=== PATIENT | female | born 1960 | race Caucasian/White ===

== ENCOUNTER 2017-07-06 10:10 | Inpatient (IN) ==
[2017-07-06] MEDS ORDERED: Ketorolac 30 MG/ML VIAL IVP ONE (10:54)
[2017-07-06] MEDS ORDERED: 0.9 % Sodium Chloride 1,000 ML IVC ONE (10:54)
[2017-07-06] MEDS ORDERED: Metoclopramide 10 MG/2 ML VIAL IVP ONE (10:54)
--- NOTE | 2017-07-06 11:05 | Emergency Department Note ---
START Narrative - START START: Nursing notes have been reviewed. Vital signs have been reviewed. Patient presents from home with her for evaluation of a headache. It is occipital and posterior cervical in location. It is constant, throbbing, dull. It began gradually on Sunday while she was a patient in the hospital at [facility]. She had been admitted on Sunday for influenza, dehydration and hypoxia. She was treated for the headache with Imitrex, however she states that this did not help. The headache has persisted so she came in for further evaluation. She denies fever, chills, nausea or vomiting. She also denies dyspnea, chest pain, dizziness, vertigo, syncope, vision changes, unilateral weakness, speech problems, confusion or ataxia. Negative been ordered. Case will be discussed with the oncoming provider who will take over care of the patient.
[2017-07-06] MEDS ORDERED: Albuterol 2.5 MG/3 ML NEBULIZER IH ONE (11:28)
[2017-07-06] MEDS ORDERED: Ipratropium/Albuterol Neb 3 ML IH ONE (11:28)
[2017-07-06] MEDS ORDERED: methylPREDNISolone 125 MG/2 ML VIAL IVP ONE (11:28)
--- NOTE | 2017-07-06 11:37 | Emergency Department Note ---
Disposition Clinical Impression: Headache Qualifiers: Headache type: unspecified Headache chronicity pattern: acute headache Intractability: intractable Qualified Code(s): R51 - Headache Disposition: Admitted As Inpatient Condition: Good Time of Disposition: 11:27 General Adult HPI - General Chief complaint: ED Headache Stated complaint: Head/Neck pain Time Seen by Provider: 07/06/17 10:41 Source: patient Limitations: no limitations Nursing Notes Reviewed: Yes Vital Signs Reviewed: Yes - History of Present Illness HPI Narrative: 6-year-old female presents emergency Department with concerns of persistent headache and neck pain. Patient states her headache has been present for the past 4 days, she was diagnosed with influenza at [facility]. She is admitted to the hospital for further care and evaluation of flu and hypoxia and was just discharged yesterday. Patient presents today with O2 saturations of 86% on room air. Patient does have a history of COPD and takes 20 mg steroids daily however she is unsure of her baseline O2 saturation. Patient does report one episode of vomiting last night when her headache was severe. The emesis was described as nonbilious, nonbloody. Patient denies recent trauma , fever, cough with sputum production, chest pain, palpitations, abdominal pain. Pain Scale: 10 - Related Data Home Medications Medication Instructions Recorded Confirmed Acyclovir [Zovirax] 400 mg PO BID 07/06/17 07/06/17 Atorvastatin Calcium [Lipitor] 20 mg PO HS 07/06/17 07/06/17 Fluticasone/Vilanterol [Breo 1 each IH AD 07/06/17 07/06/17 Ellipta 100-25 Mcg INH] Levothyroxine Sodium [Levoxyl] 50 mcg PO DAILY 07/06/17 07/06/17 Montelukast [Singulair] 10 mg PO DAILY 07/06/17 07/06/17 Multivit-Min/FA/Lycopen/Lutein 1 tab PO DAILY 07/06/17 07/06/17 [Centrum Silver Tablet] Omeprazole [PriLOSEC] 40 mg PO DAILY 07/06/17 07/06/17 Oseltamivir [Tamiflu] 75 mg PO DAILY 07/06/17 07/06/17 Ranitidine HCl [Acid [place]] 150 mg PO BID 07/06/17 07/06/17 Umeclidinium [place] [Incruse 62.5 mcg IH DAILY 07/06/17 07/06/17 Ellipta] predniSONE [PredniSONE] 10 mg PO AD 07/06/17 07/06/17 Allergies Allergy/AdvReac Type Severity Reaction Status Date / Time Penicillins Allergy Anaphylaxis Verified 07/06/17 12:51 sulfamethoxazole Allergy Hives Verified 07/06/17 12:51 [From Bactrim] trimethoprim [From Bactrim] Allergy Hives Verified 07/06/17 12:51 All systems ED: reviewed and negative except as stated. Review of Systems: As Per HPI Past Medical History - Past Medical History Attestation: Yes The following information was validated with the patient. Source: patient Medical history: Reports: no medical history Psychiatric history: Reports: no psych history - Social History Smoking Status: Never smoker Physical Exam General: Alert and in no acute distress Skin: Warm, dry, intact Head: Normocephalic and atraumatic Neck: Supple, trachea midline and no tenderness Cardiovascular: RRR, no murmur, normal perfusion Respiratory: Decreased air movement bilaterally otherwise clear to auscultation Musculoskeletal: Normal strength, no tenderness, swelling or deformity GI: Soft, nontender, nondistended. Bowel sounds present Neuro: A&O to person, place, time and situation. No focal deficits noted on exam Psychiatric: cooperative and appropriate mood and affect. - General Limitations: no limitations General appearance: alert, in no apparent distress Course Vital Signs Temperature 98.4 F 07/06/17 10:21 Pulse Rate 97 07/06/17 10:21 Respiratory Rate 18 07/06/17 10:21 Blood Pressure 141/86 07/06/17 10:21 O2 Sat by Pulse Oximetry 85 07/06/17 10:21 Temperature 98.4 F 07/06/17 10:21 Pulse Rate 88 07/06/17 15:48 Respiratory Rate 16 07/06/17 16:21 Blood Pressure 129/81 07/06/17 16:21 O2 Sat by Pulse Oximetry 95 07/06/17 15:48 Oxygen Delivery Oxygen Delivery Nasal Cannula Medical Decision Making - [facility] Narrative Medical decision making narrative: Patient states her headache has been present over the past 4 days, it improved slightly during evaluation was at [facility] however never fully resolved. Patient states her headache worsened upon discharge from the hospital yesterday. She denies recent imaging of her head. She has a history of breast cancer. CTA of the chest did not show acute PE. It did however show bibasally or atelectasis versus mild infiltrate. Patient is afebrile and this is unlikely pneumonia. Patient's symptoms likely secondary to COPD exacerbation with her acute onset of influenza. - Medical Records Medical records reviewed: Yes I reviewed the patient's medical records. - Lab Data Lab results reviewed: Yes I reviewed the patient's lab results. Result diagrams: 07/06/17 11:40 07/06/17 11:40 Lab Results 07/06/17 07/06/17 07/06/17 Range/Units 11:40 11:40 11:40 WBC 12.1 H (4.3-11.1) K/mcL RBC 4.25 (3.82-4.97) M/mcL Hgb 12.5 (11.5-15.4) g/dL Hct 39.0 (35.3-44.9) % MCV 91.8 (83.0-100.0) fL MCH 29.4 (28.0-33.3) pg MCHC 32.1 (31.6-35.5) g/dL RDW 13.3 (11.5-14.5) % Plt Count 236 (140-400) K/mcL MPV 8.6 L (9.4-12.4) fL Immature Gran % 0.3 (0-4) % Seg Neutrophils % 82.5 % Lymphocytes % 11.2 % Monocytes % 5.9 % Eosinophils % 0.0 % Basophils % 0.1 % Neutrophils # 10.0 H (1.6-8.9) K/mcL Lymphocytes # 1.4 (0.6-4.6) K/mcL Monocytes # 0.7 (0.0-1.3) K/mcL Eosinophils # 0.0 (0.0-0.6) K/mcL Basophils # 0.0 (0.0-0.2) K/mcL D-Dimer 661 H (0-500) ng/mLFEU Sodium 139 (136-145) mEq/L Potassium 3.4 L (3.5-5.1) mEq/L Chloride 101 (98-107) mEq/L Carbon Dioxide 33 H (23-29) mEq/L BUN 22 H (6-20) mg/dL Creatinine 0.66 (0.60-1.20) mg/dL Est GFR ( Amer) > 60 (> 60) Est GFR (Non-Af Amer) > 60 (> 60) BUN/Creatinine Ratio 33 H (6-26) Glucose 96 (70-105) mg/dL Calculated Osmolality 291 (280-300) Lactic Acid (0.5-2.2) mmol/L Calcium 8.5 L (8.6-10.3) mg/dL Troponin I (< 0.04) ng/mL 07/06/17 07/06/17 Range/Units 11:40 11:40 WBC (4.3-11.1) K/mcL RBC (3.82-4.97) M/mcL Hgb (11.5-15.4) g/dL Hct (35.3-44.9) % MCV (83.0-100.0) fL MCH (28.0-33.3) pg MCHC (31.6-35.5) g/dL RDW (11.5-14.5) % Plt Count (140-400) K/mcL MPV (9.4-12.4) fL Immature Gran % (0-4) % Seg Neutrophils % % Lymphocytes % % Monocytes % % Eosinophils % % Basophils % % Neutrophils # (1.6-8.9) K/mcL Lymphocytes # (0.6-4.6) K/mcL Monocytes # (0.0-1.3) K/mcL Eosinophils # (0.0-0.6) K/mcL Basophils # (0.0-0.2) K/mcL D-Dimer (0-500) ng/mLFEU Sodium (136-145) mEq/L Potassium (3.5-5.1) mEq/L Chloride (98-107) mEq/L Carbon Dioxide (23-29) mEq/L BUN (6-20) mg/dL Creatinine (0.60-1.20) mg/dL Est GFR ( Amer) (> 60) Est GFR (Non-Af Amer) (> 60) BUN/Creatinine Ratio (6-26) Glucose (70-105) mg/dL Calculated Osmolality (280-300) Lactic Acid 0.6 (0.5-2.2) mmol/L Calcium (8.6-10.3) mg/dL Troponin I < 0.03 (< 0.04) ng/mL - Radiology Data Radiology results reviewed: Yes I reviewed the patient's radiology results. - EKG Data EKG #1 EKG attestation: Yes I reviewed and interpreted this EKG. EKG results narrative: ECG - interpreted by ED physician. Rate 87, normal sinus rhythm, no STEMI, GA, QT intervals, and QRS within normal limits
[2017-07-06 11:52] LABS: Basophils % 0.1 %; Hemoglobin 12.5 g/dL (11.5-15.4); Immature Granulocytes % 0.3 % (0-4); Lymphocytes # 1.4 K/mcL (0.6-4.6); Lymphocytes % 11.2 %; Mean Corpuscular HGB Conc 32.1 g/dL (31.6-35.5); Mean Corpuscular Hemoglobin 29.4 pg (28.0-33.3); Mean Corpuscular Volume 91.8 fL (83.0-100.0); Mean Platelet Volume 8.6 fL (9.4-12.4); Monocytes # 0.7 K/mcL (0.0-1.3); Monocytes % 5.9 %; Platelet Count 236 K/mcL (140-400); Red Blood Count 4.25 M/mcL (3.82-4.97); Red Cell Distribution Width 13.3 % (11.5-14.5); Segmented Neutrophils % 82.5 %
[2017-07-06 12:06] LABS: BUN/Creatinine Ratio 33 (6-26); Blood Urea Nitrogen 22 mg/dL (6-20); Calcium 8.5 mg/dL (8.6-10.3); Carbon Dioxide 33 mEq/L (23-29); Chloride 101 mEq/L (98-107); Glucose 96 mg/dL (70-105); Osmolality,Calculated 291 (280-300); Potassium 3.4 mEq/L (3.5-5.1); Sodium 139 mEq/L (136-145); eGFR For African Americans > 60 (> 60); eGFR For Non-African Americans > 60 (> 60)
[2017-07-06] MEDS ORDERED: *HR* Promethazine 25 MG/ML VIAL IVP PRN (17:18)
[2017-07-06] MEDS ORDERED: Naloxone 0.4 MG/ML INJ IVP PRN (17:18)
--- NOTE | 2017-07-06 17:47 | Internal Med History&Physical ---
Date of Encounter: 07/06/17 Time of Encounter: 16:30 Assessment and Plan (1) Pneumonia Current visit: Yes Status: Acute Acute HCAP r/t recent hospitalization in [facility] complicated by influenza dx. 2-View CXR today shows left basilar atelectasis compatible with pneumonia. Blood cultures 2 ordered. Sputum culture. Legionella and strep pneumoniae antigens ordered. IVP may Levaquin 750 daily and aztreonam 1,000 mg every 8 for infection coverage. Will adjust ABX coverage based on culture results. Supplemental O2 with titration and SPO2 monitoring. DuoNebs every 6 scheduled. Continuous telemetry d/t tachycardia. WBC 12.1 on admission. Pt. does not currently meet sepsis criteria but will be monitored closely along w/f/ u labs. Pt. discussed w/Dr. Lane who is in agreement w/plan of care. Pt. is high risk for further morbidity d/t pneumonia, influenza, SOB, dyspnea, N/V. Inpatient. Qualifiers: Pneumonia type: due to unspecified organism Laterality: left Lung location: lower lobe of lung Qualified Code(s): J18.1 - Lobar pneumonia, unspecified organism (2) Influenza Current visit: Yes Status: Acute Acute influenza dx. Pt. states she was diagnosed in [facility] on Sunday with positive flu. Placed on Tamiflu for 2 days but patient states she was unable to take at home due to nausea vomiting. Tamiflu 75 mg twice a day 5 days. Supportive care. (3) Elevated d-dimer Current visit: Yes Status: Acute Acutely elevated D-dimer of 661 on admission. Concern was for possible PE. CTA today is no convincing evidence of pulmonary embolus within the limits of the study. No evidence for right heart strain. Bilateral venous Dopplers of LEs to r/o DVTs. Lovenox 40 mg 0600 daily for DVT prophylaxis. (4) Hypokalemia Current visit: Yes Status: Acute Acute hypokalemia w/potassium of 3.4 on admission. 40 mEq PO potassium ordered. Monitor f/u labs. Continuous cardiac telemetry. (5) Hypocalcemia Current visit: Yes Status: Acute Acute hypocalcemia w/calcium level of 8.5 on admission. 1,000 mg calcium carbonate PO TID. Monitor f/u labs. (6) Headache Current visit: Yes Status: Acute Acute headache associated w/flu dx. Stair-step pain medications for pain mgmt. Qualifiers: Headache type: unspecified Headache chronicity pattern: acute headache Intractability: intractable Qualified Code(s): R51 - Headache (7) Herpes Current visit: Yes Status: Acute Acute Herpes Simplex 1 & 2. Pt. states she was recently diagnosed w/both strains and started on medication on 06/28/17. Continue pts. Acyclovir. (8) GERD (gastroesophageal reflux disease) Current visit: Yes Status: Chronic Hx of chronic GERD. IVP phenergan 12.5 mg Q6 for N/V. Continue pts. Prilosec. Qualifiers: Esophagitis presence: esophagitis presence not specified Qualified Code(s) : K21.9 - Gastro-esophageal reflux disease without esophagitis (9) HLD (hyperlipidemia) Current visit: Yes Status: Chronic Hx of chronic HLD. Lipid panel in a.m. labs. Continue pts. Lipitor. Qualifiers: Hyperlipidemia type: pure hypercholesterolemia Qualified Code(s): E78.00 - Pure hypercholesterolemia, unspecified; E78.0 - Pure hypercholesterolemia (10) Thyroid disease Current visit: Yes Status: Chronic Hx of chronic thyroid disease. Continue pts. Levoxyl (11) DVT prophylaxis Current visit: Yes Status: Acute Lovenox 40 mg 0600 for DVT prophylaxis. Monitor pt. for signs of bleeding. Internal Medicine - H&P: HPI Chief complaint: Headache/SOB/Dyspnea Admitted From: Emergency Dept Plans for Post Hospital Care: Home History of present illness: Ms. Ponce is a 56 year old female with medical hx of HLD, thyroid disease, sleep apnea, GERD, and migraines presents from the ED with chief complaint of headache, shortness of breath, dyspnea for the past 2 days. Patient states she was admitted to [facility] on Sunday and diagnosed with positive flu and discharged yesterday. Patient states she was given 2 days of Tamiflu [facility] but did not continue at home d/t N/V. Patient states symptoms became worse and were accompanied by headache. She reports shortness of breath, cough, dyspnea, headache, nausea, vomiting but denies fever , chills, chest pain, weakness, fatigue, dizziness, lightheadedness, abdominal pain, diarrhea, constipation, pre-syncope, or syncope. Past Med Surg Social Fam HX - Past Medical History Source: patient, old records reviewed Medical history: GERD, hyperlipidemia, migraine, thyroid disease, other (Sleep apnea) Psychiatric history: no psych history - Social History Smoking Status: Former smoker Packs per day: 3 PPD - Reports quitting in 2011 Alcohol use: occasionally Drug use: none Current living situation: Home Activity Level: Independent ambulation Recent Out of Country Travel Within the Last 8 Weeks: No Exposure or Possible Exposure to Illness During Travel: No - Family History Father Race: Family Member Ethnicity: Non- Living Status: Still Living Hx Family Cardiac Disorders: Yes (HTN, Pacemaker) Hx Family Cancer: Yes (Throat) Hx Family Musculoskeletal Disorders: Yes (Back surgery) Mother Race: Family Member Ethnicity: Non- Living Status: Still Living Hx Family Cardiac Disorders: Yes (HTN) Hx Family Respiratory Disorders: Yes (Asthma) Brother Race: Family Member Ethnicity: Non- Living Status: Still Living Hx Family Cardiac Disorders: Yes (DVTs) Hx Family Psychosocial Disorders: Yes (EtOH abuse) Sister Race: Family Member Ethnicity: Non- Living Status: Still Living Hx Family Cardiac Disorders: Yes (HLD, HTN, TIAs) Internal Medicine - H&P: Meds Acyclovir [Zovirax] 400 mg PO BID 07/06/17 [History] Atorvastatin Calcium [Lipitor] 20 mg PO HS 07/06/17 [History] Fluticasone/Vilanterol [Breo Ellipta 100-25 Mcg INH] 1 each IH AD 07/06/17 [ History] Levothyroxine Sodium [Levoxyl] 50 mcg PO DAILY 07/06/17 [History] Montelukast [Singulair] 10 mg PO DAILY 07/06/17 [History] Multivit-Min/FA/Lycopen/Lutein [Centrum Silver Tablet] 1 tab PO DAILY 07/06/17 [ History] Omeprazole [PriLOSEC] 40 mg PO DAILY 07/06/17 [History] Oseltamivir [Tamiflu] 75 mg PO DAILY 07/06/17 [History] Ranitidine HCl [Acid Belly Dancer] 150 mg PO BID 07/06/17 [History] Umeclidinium [place] [Incruse Ellipta] 62.5 mcg IH DAILY 07/06/17 [History] predniSONE [PredniSONE] 10 mg PO AD 07/06/17 [History] 3 Allergy/AdvReac Type Severity Reaction Status Date / Time Penicillins Allergy Anaphylaxis Verified 07/06/17 12:51 sulfamethoxazole Allergy Hives Verified 07/06/17 12:51 [From Bactrim] trimethoprim [From Bactrim] Allergy Hives Verified 07/06/17 12:51 All Systems PM: A 10-system review of systems was performed and is negative for pertinent findings except as documented above in the HPI. - Constitutional Constitutional: as per HPI, no chills, no fever(s), no night sweats - EENT Eyes: no change in vision, no discharge, no pain, no photophobia Ears: no ear discharge, no ear pain, no tinnitus Nose, mouth and throat: no dysphagia, no nasal discharge, no neck pain, no sore throat - Breasts Breasts: as per HPI - Cardiovascular Cardiovascular ROS IM: as per HPI, dyspnea, dyspnea on exertion, no chest pain, no diaphoresis, no lightheadedness, no palpitations, no syncope - Respiratory Respiratory: as per HPI, cough, dyspnea, dyspnea on exertion, no wheezing, no excessive phlegm production - Gastrointestinal Gastrointestinal: as per HPI, nausea, vomiting, no abdominal pain, no diarrhea, no hematemesis, no hematochezia, no melena - Genitourinary Genitourinary: no change in urinary stream, no dysuria, no flank pain, no hematuria Menstruation: as per HPI - Musculoskeletal Musculoskeletal ROS IM: no numbness, no tingling - Integumentary Integumentary IM: no rash, no unusual bruising - Neurological Neurological ROS: no confusion, no convulsions, no focal weakness, no numbness, no tingling, no tremor(s) - Psychiatric Psychiatric: as per HPI - Endocrine Endocrine IM: as per HPI - Hematologic/Lymphatic Hematologic/Lymphatic: no easy bruising - Allergic/Immunologic Allergic/Immunologic: as per HPI - Constitutional Vitals: Temp Pulse Resp BP Pulse Ox 98.2 F 76 16 135/69 93 07/06/17 17:28 07/06/17 17:28 07/06/17 17:28 07/06/17 17:28 07/06/17 17:28 General appearance: Present: cooperative, A&O X 3, morbidly obese, pleasant, no acute distress, answers questions appropriately - Head Head exam: Present: atraumatic, normocephalic - Eye Eye exam: Present: PERRL, conjuntiva pink, sclera anicteric Pupils: Present: PERRL - ENT ENT exam: Present: normal exam - Neck Neck exam general surgery: Present: normal inspection, supple, trachea midline. Absent: lymphadenopathy - Respiratory Respiratory exam: Present: decreased breath sounds - Cardiovascular Cardiovascular exam: Present: RRR, +S1, +S2. Absent: diastolic murmur, gallop, rubs, systolic murmur - GI/Abdominal GI/Abdominal exam: Present: normal bowel sounds, soft, no peritoneal signs. Absent: distended, tenderness - Rectal Rectal exam: Present: deferred - Additional comments: exam deferred. - Extremities Exam Extremities exam: Present: warm, radial pulses palpable and symmetrical. Absent : calf tenderness, cyanotic, pedal edema - Back Exam Back exam: Present: normal inspection - Neurological Exam Neurological exam: Present: CN II-XII intact, oriented X3, no focal deficits. Absent: pronater drift, facial droop, speech deficit - Psychiatric Psychiatric exam: Present: normal affect, normal mood - Skin Skin exam: Present: dry, intact Internal Med - H&P Results - Labs CBC & Chem 7: 07/06/17 11:40 07/06/17 11:40 - EKG Data EKG shows normal: sinus rhythm - EKG Data Prior EKG available for review: no EKG comments: 07/06/17 17:54 EKG dated 07/06/17 sinus rhythm with possible left atrial enlargement, incomplete right bundle branch block. Borderline ECG. - Diagnostic Studies Chest x-ray Additional comments: Impressions Chest X-Ray 07/06/17 11:28 IMPRESSION: Left basilar atelectasis compatible with pneumonia D/ / Jd Pimentel MD / Jd Pimentel MD Interpreting Provider: Jd Pimentel MD CT scan - head Additional comments: Impressions Head CT 07/06/17 11:27 IMPRESSION: No evidence of acute intracranial hemorrhage or mass effect. Limited exam. D/ / Herman Carlin MD / Herman Carlin MD Interpreting Provider: Herman Carlin MD Other Images Additional comments: Impressions Chest CTA 07/06/17 13:02 IMPRESSION: Evaluation limited by respiratory motion artifact. No convincing evidence of pulmonary embolus within the limitations of this study. No evidence for right heart strain. Left basilar airspace disease. Differential considerations include infectious process versus atelectasis. Emphysematous changes within the bilateral upper lobes. D/ / Jorge Luis Katz MD / Jorge Luis Katz MD Interpreting Provider: Jorge Luis Katz MD
--- NOTE | 2017-07-06 18:33 | Event Note ---
Date of Encounter: 07/06/17 Time of Encounter: 18:33 Patient seen and examined with nurse practitioner. Agree with assessment and plan
[2017-07-06] MEDS: (Fluticasone/Vilanterol [Breo Ellipta 100-25 Mcg Inh]) IH SCH (18:45)
[2017-07-06] MEDS: Levofloxacin 750 MG/150 ML 750 MG/150 ML BAG IVPB SCH (18:50)
[2017-07-06] MEDS: Acetaminophen 325 MG TABLET PO PRN (20:08)
[2017-07-06] MEDS: Famotidine 20 MG TABLET PO SCH (20:08)
[2017-07-06] MEDS: Acyclovir 200 MG CAPSULE PO SCH (20:08)
[2017-07-06] MEDS: Ipratropium/Albuterol Neb 3 ML IH SCH (21:23)
[2017-07-06] MEDS: Aztreonam 1,000 MG in Water for inj. (sterile) 10 ML IVP SCH (23:55)
[2017-07-06] MEDS: MethylPREDNISolone 40 MG/ML VIAL IVP SCH (23:56)
[2017-07-07] MEDS ORDERED: Aztreonam 1,000 MG in D5% in Water (Mini-Bag+) 100 ML IVPB SCH
[2017-07-07] MEDS: Acetaminophen 325 MG TABLET PO PRN (04:14)
[2017-07-07] MEDS: Ipratropium/Albuterol Neb 3 ML IH SCH ×4 (05:09→22:53)
[2017-07-07] MEDS: *HR* Enoxaparin 40 MG/0.4 ML SYRINGE SQ SCH (05:56)
[2017-07-07 06:04] LABS: Basophils % 0.1 %; Hematocrit 41.1 % (35.3-44.9); Hemoglobin 12.8 g/dL (11.5-15.4); Immature Granulocytes % 1.7 % (0-4); Lymphocytes # 0.9 K/mcL (0.6-4.6); Lymphocytes % 10.6 %; Mean Corpuscular HGB Conc 31.1 g/dL (31.6-35.5); Mean Corpuscular Hemoglobin 28.8 pg (28.0-33.3); Mean Corpuscular Volume 92.6 fL (83.0-100.0); Mean Platelet Volume 9.1 fL (9.4-12.4); Monocytes # 0.3 K/mcL (0.0-1.3); Monocytes % 3.6 %; Neutrophils # 6.8 K/mcL (1.6-8.9); Platelet Count 243 K/mcL (140-400); Red Blood Count 4.44 M/mcL (3.82-4.97)
[2017-07-07 06:09] LABS: Hemoglobin A1C 5.3 %
[2017-07-07 06:16] LABS: Alanine Aminotransferase 18 Units/L (7-52); Albumin 3.6 g/dL (3.5-5.7); Albumin/Globulin Ratio 1.4 (1.1-2.2); Alkaline Phosphatase 46 Units/L (34-104); Aspartate Amino Transferase 14 Units/L (13-39); BUN/Creatinine Ratio 31 (6-26); Bilirubin,Total 0.3 mg/dL (0.3-1.0); Blood Urea Nitrogen 19 mg/dL (6-20); Calcium 8.7 mg/dL (8.6-10.3); Carbon Dioxide 36 mEq/L (23-29); Chloride 101 mEq/L (98-107); Chol/HDL Ratio 5.1 (0-4.9); Cholesterol 179 mg/dL (< 200); Globulin 2.6 g/dL (2.4-3.5); Glucose 125 mg/dL (70-105); HDL Cholesterol 35 mg/dL (40-59); LDL Cholesterol,Calculated 109 mg/dL (0-99); Magnesium 2.5 mg/dL (1.6-2.6); Osmolality,Calculated 292 (280-300); Potassium 4.5 mEq/L (3.5-5.1); Sodium 139 mEq/L (136-145); Total Protein 6.2 g/dL (6.4-8.9); Triglycerides 176 mg/dL (< 150); eGFR For African Americans > 60 (> 60); eGFR For Non-African Americans > 60 (> 60)
[2017-07-07] MEDS: Acyclovir 200 MG CAPSULE PO SCH ×2 (07:55→20:13)
[2017-07-07] MEDS: Multivit/Ca/Min/Fe/FA 1 TAB TABLET PO SCH (07:56)
[2017-07-07] MEDS: Famotidine 20 MG TABLET PO SCH ×2 (07:56→20:13)
[2017-07-07] MEDS: MethylPREDNISolone 40 MG/ML VIAL IVP SCH ×2 (07:58→15:46)
[2017-07-07] MEDS: Levofloxacin 750 MG/150 ML 750 MG/150 ML BAG IVPB SCH (08:01)
[2017-07-07] MEDS ORDERED: Water for inj. (sterile) 10 ML IV ONE (08:24)
[2017-07-07] MEDS: Aztreonam 1,000 MG in Water for inj. (sterile) 10 ML IVP SCH ×3 (08:25→23:54)
[2017-07-07] MEDS: (Umeclidinium Bromide [Incruse Ellipta] 62.5 MCG) IH SCH (08:35)
[2017-07-07] MEDS: *HR* HYDROcodone/Acet 5/325 mg TABLET PO PRN ×2 (10:23→20:13)
[2017-07-07] MEDS: (Fluticasone/Vilanterol [Breo Ellipta 100-25 Mcg Inh]) IH SCH (17:52)
--- NOTE | 2017-07-07 18:19 | Internal Med Progress Note ---
Date of Encounter: 07/07/17 Time of Encounter: 11:00 - Assessment and plan (1) Pneumonia Current Visit: Yes Status: Acute Assessment and plan: -Patient reports of shortness of breath has improved but still requiring supplemental oxygenation -Continue IV Aztreonam and IV Levaquin in addition to DuoNeb's -Will de-escalate Solu-Medrol to prednisone Qualifiers: Pneumonia type: due to unspecified organism Laterality: left Lung location: lower lobe of lung Qualified Code(s): J18.1 - Lobar pneumonia, unspecified organism (2) Acute respiratory failure with hypoxia Current Visit: Yes Status: Acute Assessment and plan: -Secondary to the above -Try to wean oxygen as tolerated (3) Influenza Current Visit: Yes Status: Acute Assessment and plan: -Continue Tamiflu (4) Headache Current Visit: Yes Status: Acute Assessment and plan: -Patient with chronic headaches -TYLENOL NEEDED Qualifiers: Headache type: unspecified Headache chronicity pattern: acute headache Intractability: intractable Qualified Code(s): R51 - Headache (5) GERD (gastroesophageal reflux disease) Current Visit: Yes Status: Chronic Qualifiers: Esophagitis presence: esophagitis presence not specified Qualified Code(s) : K21.9 - Gastro-esophageal reflux disease without esophagitis (6) Thyroid disease Current Visit: Yes Status: Chronic Assessment and plan: -Continue levothyroxine (7) HLD (hyperlipidemia) Current Visit: Yes Status: Chronic Assessment and plan: Continue statin Qualifiers: Hyperlipidemia type: pure hypercholesterolemia Qualified Code(s): E78.00 - Pure hypercholesterolemia, unspecified; E78.0 - Pure hypercholesterolemia (8) DVT prophylaxis Current Visit: Yes Status: Acute Assessment and plan: Lovenox subcutaneous - Subjective Interval history: She reports that her shortness of breath has improved but still requiring supplemental oxygen - Constitutional Vitals: Temp Pulse Resp BP Pulse Ox 98.1 F 83 16 110/66 93 07/07/17 14:18 07/07/17 14:18 07/07/17 16:34 07/07/17 14:18 07/07/17 16:34 General appearance: Present: cooperative, A&O X 3, morbidly obese, pleasant, no acute distress, answers questions appropriately - Respiratory Respiratory exam: Present: CTAB. Absent: accessory muscle use, rales, rhonchi, wheezes - Cardiovascular Cardiovascular exam: Present: RRR, +S1, +S2. Absent: diastolic murmur, gallop, rubs, systolic murmur Internal Medicine: Result - Labs CBC & Chem 7: 07/07/17 05:37 07/07/17 05:37 Labs: Short CBC 07/07/17 Range/Units 05:37 WBC 8.0 (4.3-11.1) K/mcL Hgb 12.8 (11.5-15.4) g/dL Hct 41.1 (35.3-44.9) % Plt Count 243 (140-400) K/mcL Neutrophils # 6.8 (1.6-8.9) K/mcL BMP 07/07/17 05:37 Sodium 139 Potassium 4.5 D Chloride 101 Carbon Dioxide 36 H BUN 19 Creatinine 0.62 Glucose 125 H Calcium 8.7 Liver Function 07/07/17 Range/Units 05:37 Total Bilirubin 0.3 (0.3-1.0) mg/dL AST 14 (13-39) Units/L ALT 18 (7-52) Units/L Alkaline Phosphatase 46 (34-104) Units/L Albumin 3.6 (3.5-5.7) g/dL - ABG Interpretation ABG results: PT/INR, D-dimer D-Dimer 661 ng/mLFEU (0-500) H 07/06/17 11:40 Consult Discharge Plan - Plan Referrals: NONE,PCP [Primary Care Provider] -
[2017-07-08] MEDS: Ipratropium/Albuterol Neb 3 ML IH SCH ×3 (04:20→15:49)
[2017-07-08 05:13] LABS: Basophils % 0.1 %; Hematocrit 39.8 % (35.3-44.9); Hemoglobin 12.8 g/dL (11.5-15.4); Immature Granulocytes % 0.9 % (0-4); Lymphocytes # 1.6 K/mcL (0.6-4.6); Lymphocytes % 20.1 %; Mean Corpuscular HGB Conc 32.2 g/dL (31.6-35.5); Mean Corpuscular Hemoglobin 29.4 pg (28.0-33.3); Mean Corpuscular Volume 91.5 fL (83.0-100.0); Mean Platelet Volume 8.6 fL (9.4-12.4); Monocytes # 0.6 K/mcL (0.0-1.3); Monocytes % 7.1 %; Neutrophils # 5.5 K/mcL (1.6-8.9); Platelet Count 236 K/mcL (140-400); Red Blood Count 4.35 M/mcL (3.82-4.97); Red Cell Distribution Width 12.8 % (11.5-14.5); Segmented Neutrophils % 71.8 %
[2017-07-08 05:23] LABS: Alanine Aminotransferase 14 Units/L (7-52); Albumin 3.4 g/dL (3.5-5.7); Albumin/Globulin Ratio 1.4 (1.1-2.2); Alkaline Phosphatase 42 Units/L (34-104); Aspartate Amino Transferase 10 Units/L (13-39); BUN/Creatinine Ratio 25 (6-26); Bilirubin,Total 0.3 mg/dL (0.3-1.0); Blood Urea Nitrogen 17 mg/dL (6-20); Calcium 8.8 mg/dL (8.6-10.3); Carbon Dioxide 35 mEq/L (23-29); Chloride 101 mEq/L (98-107); Globulin 2.4 g/dL (2.4-3.5); Glucose 112 mg/dL (70-105); Osmolality,Calculated 300 (280-300); Potassium 3.7 mEq/L (3.5-5.1); Sodium 144 mEq/L (136-145); Total Protein 5.8 g/dL (6.4-8.9); eGFR For African Americans > 60 (> 60); eGFR For Non-African Americans > 60 (> 60)
[2017-07-08] MEDS: *HR* Enoxaparin 40 MG/0.4 ML SYRINGE SQ SCH (05:59)
[2017-07-08] MEDS: Acyclovir 200 MG CAPSULE PO SCH (08:37)
[2017-07-08] MEDS: Famotidine 20 MG TABLET PO SCH (08:37)
[2017-07-08] MEDS: Aztreonam 1,000 MG in Water for inj. (sterile) 10 ML IVP SCH (08:38)
[2017-07-08] MEDS: Multivit/Ca/Min/Fe/FA 1 TAB TABLET PO SCH (08:38)
[2017-07-08] MEDS: Levofloxacin 750 MG/150 ML 750 MG/150 ML BAG IVPB SCH (08:39)
[2017-07-08] MEDS: (Umeclidinium Bromide [Incruse Ellipta] 62.5 MCG) IH SCH (08:39)
[2017-07-08] MEDS ORDERED: predniSONE 20 MG TABLET PO SCH (09:00)
--- NOTE | 2017-07-08 09:04 | Electrocardiograph Report ---
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
[2017-07-08 12:01] VITALS: BP 175/77
--- NOTE | 2017-07-08 14:35 | Discharge Summary ---
Date of Encounter: 07/08/17 Time of Encounter: 11:00 - Discharge Diagnosis (1) Pneumonia Priority: Primary Status: Acute Qualifiers: Pneumonia type: due to unspecified organism Laterality: left Lung location: lower lobe of lung Qualified Code(s): J18.1 - Lobar pneumonia, unspecified organism (2) Acute respiratory failure with hypoxia Priority: Secondary Status: Acute (3) Influenza Priority: Primary Status: Acute (4) Headache Priority: Secondary Status: Acute Qualifiers: Headache type: unspecified Headache chronicity pattern: acute headache Intractability: intractable Qualified Code(s): R51 - Headache (5) GERD (gastroesophageal reflux disease) Priority: Secondary Status: Chronic Qualifiers: Esophagitis presence: esophagitis presence not specified Qualified Code(s) : K21.9 - Gastro-esophageal reflux disease without esophagitis (6) Thyroid disease Priority: Secondary Status: Chronic (7) HLD (hyperlipidemia) Priority: Secondary Status: Chronic Qualifiers: Hyperlipidemia type: pure hypercholesterolemia Qualified Code(s): E78.00 - Pure hypercholesterolemia, unspecified; E78.0 - Pure hypercholesterolemia - Discharge Medications Prescriptions: Levofloxacin [Levaquin] 500 mg PO DAILY 5 Days #5 tablet predniSONE [PredniSONE] 40 mg PO DAILY 5 Days #10 tablet Home Medications: Acyclovir [Zovirax] 400 mg PO BID 07/06/17 [History] Atorvastatin Calcium [Lipitor] 20 mg PO HS 07/06/17 [History] Fluticasone/Vilanterol [Breo Ellipta 100-25 Mcg INH] 1 each IH AD 07/06/17 [ History] Levothyroxine Sodium [Levoxyl] 50 mcg PO DAILY 07/06/17 [History] Montelukast [Singulair] 10 mg PO DAILY 07/06/17 [History] Multivit-Min/FA/Lycopen/Lutein [Centrum Silver Tablet] 1 tab PO DAILY 07/06/17 [ History] Omeprazole [PriLOSEC] 40 mg PO DAILY 07/06/17 [History] Oseltamivir [Tamiflu] 75 mg PO DAILY 07/06/17 [History] Ranitidine HCl [Acid [employer]] 150 mg PO BID 07/06/17 [History] Umeclidinium Soquel [Incruse Ellipta] 62.5 mcg IH DAILY 07/06/17 [History] Levofloxacin [Levaquin] 500 mg PO DAILY 5 Days #5 tablet 07/08/17 [Rx] predniSONE [PredniSONE] 40 mg PO DAILY 5 Days #10 tablet 07/08/17 [Rx] Allergies/Adverse Reactions: 3 Allergy/AdvReac Type Severity Reaction Status Date / Time Penicillins Allergy Anaphylaxis Verified 07/06/17 12:51 sulfamethoxazole Allergy Hives Verified 07/06/17 12:51 [From Bactrim] trimethoprim [From Bactrim] Allergy Hives Verified 07/06/17 12:51 Procedures/tests Complete & Pending: Procedures Performed prior 72 hours Category Date Time Status EV venous imaging LE BI Routine Y 07/07/17 17:26 Completed Date of admission: 07/06/17 17:18 Primary care physician: PCP NONE - Patient Status Disposition: Home, Self-Care Condition: Good - Discharge Instructions Follow Up With: NONE,PCP [Primary Care Provider] - Hospital course: Patient is a 56-year-old female with past medical history significant for HLD, thyroid disease, sleep apnea, GERD, and migraines presented to the ER on due to shortness of breath. Patient reported of a 2 day history of dyspnea with exertion in addition to headaches. Patient was admitted to [facility] on 07/04/17 and diagnosed with positive flu and discharged the day prior to this admission to [facility]. Patient reported of not being able to take her Tamiflu due to N/V. Patient reported that symptoms became worse and were accompanied by headache so decided to come to [facility] ER for further evaluation. In the ER, patient was found to be an acute hypoxic respiratory failure secondary to left lower lobe pneumonia on chest x-ray and was admitted to the medical floor for further management. During patients hospital stay her symptoms of dyspnea resolved and she was able to be weaned off supplemental oxygenation with treatment on IV Levaquin and Aztreonam in addition to IV Solu-Medrol. Patient will be discharged to continue a 3 day course of Tamiflu for influenza and a 5 day course of Levaquin and oral prednisone for pneumonia. She should to follow-up with primary care provider. - Time Spent with Patient Total time spent providing and/or coordinating discharge services: Less than 30 minutes - Constitutional Vitals: Temp Pulse Resp BP Pulse Ox 98.2 F 83 16 175/77 92 07/08/17 12:00 07/08/17 12:00 07/08/17 12:00 07/08/17 12:00 07/08/17 12:00 General appearance: Present: cooperative, A&O X 3, morbidly obese, pleasant, no acute distress, answers questions appropriately - Respiratory Respiratory exam: Present: CTAB. Absent: accessory muscle use, rales, rhonchi, wheezes - Cardiovascular Cardiovascular exam: Present: RRR, +S1, +S2. Absent: diastolic murmur, gallop, rubs, systolic murmur
== END 2017-07-08 15:30 | disposition home or self-care (01) | DRG 139 ==
LOC: EMEROO 10:10 → 3ANU 10:10
PROVIDERS: ADMIT Hospitalist; ATTEND Hospitalist